=== PATIENT | female | born 1985 | race Two or more races ===

== ENCOUNTER 2020-02-29 02:50 | Emergency (ER) | payer OTHER ==
[~2020-02-29] VITALS: Ht 152.4 cm; Wt 61.2 kg
[2020-02-29] MEDS ORDERED: DICY20TA (03:05)
[2020-02-29] MEDS ORDERED: PRILOSEC OTC20 MG (03:05)
[2020-03-07] MEDS ORDERED: DOLOGESIC (09:26)
== END 2020-02-29 12:55 | disposition home or self-care (01) ==
LOC: ER 02:50
DX: R10.11 Right upper quadrant pain (principal); K80.70 Calculus of gallbladder and bile duct without cholecystitis without obstruction

== ENCOUNTER 2020-03-07 12:15 | Emergency (ER) | payer OTHER ==
[~2020-03-07] VITALS: Ht 152.4 cm; Wt 59.9 kg
[~2020-03-07 12:15] MED LIST: DICY20TA; DOLOGESIC; PRILOSEC OTC20 MG
== END 2020-03-07 18:10 | disposition home or self-care (01) ==
LOC: ER 12:15
DX: D50.0 Iron deficiency anemia secondary to blood loss (chronic) (principal); K62.5 Hemorrhage of anus and rectum; R10.11 Right upper quadrant pain; Z33.1 Pregnant state, incidental

== ENCOUNTER 2020-03-31 07:31 | Day surgery (SDC) | payer OTHER | END 2020-03-31 14:00 | disposition home or self-care (01) | LOC: CIR.AMB 07:31 | PROVIDERS: ATTEND Surgery | DX: K80.10 Calculus of gallbladder with chronic cholecystitis without obstruction (principal); Z20.828 Contact with and (suspected) exposure to other viral communicable diseases ==

== ENCOUNTER 2020-11-14 07:00 | Day surgery (SDC) | payer OTHER ==
[~2020-11-14 07:00] MED LIST changes: +ADVIL PO; +ELAVIL PO; +PEPCID AC20 MG PO; +VITAMIN C PO; +VITAMIN D PO; +[UNRECOGNIZED DRUG - OTHER] PO
[2020-11-14] MEDS ORDERED: PERCOCET 5-3251 EACH PO (10:46)
[2020-11-14] MEDS ORDERED: KETO10TA2 PO (10:46)
[2020-11-14] MEDS ORDERED: NEURONTIN300 MG PO (10:47)
== END 2020-11-14 15:50 | disposition home or self-care (01) ==
LOC: CIR.AMB 07:00
PROVIDERS: ATTEND Surgery
DX: K64.4 Residual hemorrhoidal skin tags (principal); K64.8 Other hemorrhoids; Z20.822 Contact with and (suspected) exposure to COVID-19

== ENCOUNTER 2025-02-03 08:15 | Inpatient (IN) | payer OTHER ==
[~2025-02-03] VITALS: Ht 152.4 cm; Wt 63.5 kg
[~2025-02-03 08:15] MED LIST changes: +KETO10TA2 PO; +NEURONTIN300 MG PO; +PERCOCET 5-3251 EACH PO
[2025-02-03 09:47] LABS: BASO % 0.6 % (0.1-1.2); EOS # 0.05 (0.04-0.54); HEMATOCRIT 39.1 % (34.1-44.9); HEMOGLOBIN 13.3 g/dL (11.2-15.7); LYMPH # 1.96 (1.18-3.74); LYMPH % 37.6 % (19.3-53.1); MEAN CORPUSCULAR HEMOGLOBIN 28.5 pg (25.6-32.2); MONO # 0.44 (0.24-0.82); MONO % 8.4 % (4.7-12.5); NEUT # 2.72 (1.56-6.13); NEUT % 52.2 % (34.0-71.1); PLATELET COUNT 375 K/uL (163-369); RED BLOOD COUNT 4.67 M/uL (3.93-5.22); RED CELL DISTRIBUTION WIDTH 13.1 % (11.6-14.4)
[2025-02-03 09:52] LABS: URINE APPEARANCE Clear; URINE BILIRRUBIN Negative (NEGATIVE); URINE BLOOD Negative; URINE COLOR Yellow; URINE GLUCOSE Negative (NEGATIVE); URINE KETONE Negative (NEGATIVE); URINE LEUKOCYTE Negative; URINE NITRATE Negative; URINE PROTEIN Negative (NEGATIVE); URINE UROBILINOGEN 0.2 E.U./dl
[2025-02-03 09:54] LABS: URINE BACTERIA 78.3 uL (0.0-1933); URINE EPITHELIAL CELLS 6.6 uL (0.0-38.8)
[2025-02-03 10:16] LABS: URINE RBC 1.4 uL (0.0-20.8); URINE WBC 1.1 uL (0.0-23.2)
[2025-02-03 10:16] LABS: INR 0.98; PROTHROMBIN TIME 10.7 SECONDS (9.0-11.5)
[2025-02-03] MEDS ORDERED: MELATONIN10 MG PO (10:16)
[2025-02-03 10:17] VITALS: BP 122/78
[2025-02-03 11:04] LABS: ALBUMIN 4.1 gm/dL (3.4-5.0); ALKALINE PHOSPHATASE 82 U/L (50-136); ALT/SGPT 42 U/L (12-78); ANION GAP 9 (10.0-20.0); AST/SGOT 27 U/L (15-37); BLOOD UREA NITROGEN 15 mg/dL (7-18); BUN CREA RATIO 22 (7.0-25.0); CALCIUM 9.5 mg/dL (8.5-10.1); CARBON DIOXIDE 29 mEq/L (21-32); CHLORIDE 106 mmol/L (98-107); CREATININE SERUM 0.69 mg/dL (0.55-1.02); GFR 95.73; GLUCOSE FASTING 94 mg/dL (65-100); HCG QUANTITATIVE < 1 mUI/mL (1-3); OSMOLALITY SERUM 280 MOSM/KG (275-295); POTASSIUM 4.16 mEq/L (3.5-5.1); SODIUM 140 mmol/L (136-145); TOTAL PROTEIN 8.1 gm/dL (6.4-8.2)
[2025-02-03 11:51] LABS: RH POSITIVE
[2025-02-09] MEDS ORDERED: METRONIDAZOLE/SODIUM CHLORIDE 500 MG/100 ML PIGGYBACK IV ONE (10:58)
[2025-02-09] MEDS ORDERED: CEFAZOLIN SODIUM 1,000 MG VIAL ONE (10:58)
[2025-02-09] MEDS ORDERED: POVIDONE-IODINE 118 ML BOTT TOP ONE (11:39)
[2025-02-09] MEDS ORDERED: BUPIVACAINE HCL/MPF 0.5% 30ML VIAL ONE (11:39)
[2025-02-09] MEDS ORDERED: MORPHINE SULFATE 4 MG/ML VIAL IV ONE ×2 (16:50→17:20)
[2025-02-09] MEDS ORDERED: OxyCODONE HCL 5 MG TABLET (ROXICODONE) PO PRN (17:00)
[2025-02-09] MEDS ORDERED: RINGERS SOLUTION,LACTATED 1,000 ML IV SCH (17:00)
[2025-02-09] MEDS ORDERED: ONDANSETRON HCL 2 MG/ML VIAL IV PRN (17:00)
[2025-02-09 17:52] VITALS: BP 106/66
[2025-02-09] MEDS ORDERED: KETOROLAC TROMETHAMINE 30 MG VIAL IV SCH (18:00)
[2025-02-09] MEDS ORDERED: ACETAMINOPHEN 500 MG GEL..CAP PO SCH (18:00)
[2025-02-09] MEDS ORDERED: AMITRIPTYLINE HCL 10 MG TABLET PO SCH (21:00)
[2025-02-10 00:19] VITALS: BP 98/64
[2025-02-10 05:00] VITALS: BP 104/66
[2025-02-10 06:24] LABS: BASO % 0.1 % (0.1-1.2); EOS # 0.01 (0.04-0.54); EOS % 0.1 % (0.7-7.0); HEMATOCRIT 34.5 % (34.1-44.9); HEMOGLOBIN 11.5 g/dL (11.2-15.7); LYMPH # 1.84 (1.18-3.74); LYMPH % 25.8 % (19.3-53.1); MEAN CORPUSCULAR HEMOGLOBIN 28.1 pg (25.6-32.2); MONO # 0.65 (0.24-0.82); MONO % 9.1 % (4.7-12.5); NEUT # 4.62 (1.56-6.13); NEUT % 64.8 % (34.0-71.1); PLATELET COUNT 325 K/uL (163-369); RED BLOOD COUNT 4.09 M/uL (3.93-5.22); RED CELL DISTRIBUTION WIDTH 13.2 % (11.6-14.4)
[2025-02-10 08:03] VITALS: BP 109/63
== END 2025-02-10 13:18 | disposition home or self-care (01) | DRG 743 ==
LOC: SURH 02-09 08:15 → O/R 02-09 10:08 → OB/GYN 02-09 16:04 → O/R 02-10 08:53 → OB/GYN 02-10 08:54
PROVIDERS: ADMIT Student in an Organized Health Care Education/Training Program; ATTEND Student in an Organized Health Care Education/Training Program
PROC: 0UT74ZZ Resection of Bilateral Fallopian Tubes, Percutaneous Endoscopic Approach (ICD-10-PCS; 2025-02-09)
PROC: 0TNB4ZZ Release Bladder, Percutaneous Endoscopic Approach (ICD-10-PCS; 2025-02-09)
PROC: 0TJB8ZZ Inspection of Bladder, Via Natural or Artificial Opening Endoscopic (ICD-10-PCS; 2025-02-09)
PROC: 0UT94ZZ Resection of Uterus, Percutaneous Endoscopic Approach (ICD-10-PCS; principal; 2025-02-09 08:45)
DX: D25.1 Intramural leiomyoma of uterus (principal); N80.03 Adenomyosis of the uterus; R10.2 Pelvic and perineal pain; N94.4 Primary dysmenorrhea

== ENCOUNTER 2025-02-17 14:10 | Emergency (ER) | payer OTHER ==
[~2025-02-17] VITALS: Ht 152.4 cm; Wt 63.5 kg
[~2025-02-17 14:10] MED LIST changes: +MELATONIN10 MG PO
[2025-02-17] MEDS ORDERED: GRALISE600 MG PO (14:18)
[2025-02-17] MEDS ORDERED: GAS-X125 MG PO (14:19)
[2025-02-17] MEDS ORDERED: 0.9 % SODIUM CHLORIDE 1,000 ML IV SCH (14:45)
[2025-02-17] MEDS ORDERED: VANCOMYCIN HCL 1,000 MG VIAL IV ONE (14:45)
[2025-02-17] MEDS ORDERED: VANCOMYCIN HCL 1,000 MG VIAL ONE (15:02)
[2025-02-17 15:54] LABS: BASO % 0.6 % (0.1-1.2); EOS # 0.03 (0.04-0.54); EOS % 0.6 % (0.7-7.0); HEMATOCRIT 39.5 % (34.1-44.9); HEMOGLOBIN 13.5 g/dL (11.2-15.7); LYMPH # 1.45 (1.18-3.74); LYMPH % 27.3 % (19.3-53.1); MEAN CORPUSCULAR HEMOGLOBIN 28.3 pg (25.6-32.2); MONO # 0.32 (0.24-0.82); NEUT # 3.47 (1.56-6.13); NEUT % 65.3 % (34.0-71.1); PLATELET COUNT 413 K/uL (163-369); RED BLOOD COUNT 4.77 M/uL (3.93-5.22); RED CELL DISTRIBUTION WIDTH 13.2 % (11.6-14.4)
[2025-02-17 15:58] LABS: PH,URINE 6.5 (5.0-8.0); URINE APPEARANCE Clear; URINE BILIRRUBIN Negative (NEGATIVE); URINE BLOOD Negative; URINE COLOR Yellow; URINE GLUCOSE Negative (NEGATIVE); URINE KETONE Negative (NEGATIVE); URINE LEUKOCYTE Negative; URINE NITRATE Negative; URINE PROTEIN Negative (NEGATIVE); URINE UROBILINOGEN 0.2 E.U./dl
[2025-02-17 16:01] LABS: URINE BACTERIA 14.6 uL (0.0-1933); URINE EPITHELIAL CELLS 8.6 uL (0.0-38.8); URINE RBC 4.2 uL (0.0-20.8)
[2025-02-17 16:05] LABS: URINE WBC 0.6 uL (0.0-23.2)
[2025-02-17 16:16] LABS: ALBUMIN 4.1 gm/dL (3.4-5.0); BILIRUBIN TOTAL 0.35 mg/dL (0.3-1.2); CALCIUM 9.5 mg/dL (8.5-10.1); CREATININE SERUM 0.75 mg/dL (0.55-1.02); GFR 86.95; GLOBULINA 4.7 G/DL (2.4-3.5); POTASSIUM 3.91 mEq/L (3.5-5.1); TOTAL PROTEIN 8.8 gm/dL (6.4-8.2)
== END 2025-02-17 17:57 | disposition home or self-care (01) ==
LOC: ER 14:16
PROVIDERS: General Practice
DX: G89.18 Other acute postprocedural pain (principal)